=== PATIENT | female | born 1975 | race Caucasian/White ===

== ENCOUNTER → 2022-11-14 | Outpatient (CLI) | payer BC | LOC: M LABSMTC 10:28 | PROVIDERS: ATTEND Anesthesiology | DX: Z01.812 Encounter for preprocedural laboratory examination (principal); Z20.822 Contact with and (suspected) exposure to COVID-19 ==

== ENCOUNTER 2022-11-19 09:49 | Day surgery (SDC) | payer BC ==
[~2022-11-19] VITALS: Ht 157.5 cm; Wt 85.3 kg
[2022-11-19] MEDS ORDERED: LR 1,000 ML IV SCH ×2 (10:00→15:25)
[2022-11-19] MEDS ORDERED: propofoL 200 MG/20 ML VIAL As Ordered ONE (11:09)
[2022-11-19] MEDS ORDERED: fentaNYL 250 MCG/5 ML INJECTION As Ordered ONE (11:09)
[2022-11-19] MEDS ORDERED: MIDAZOLAM INJ 2MG/2ML VIAL As Ordered ONE (11:24)
[2022-11-19] MEDS ORDERED: ROCURONIUM BROMIDE 50MG/5ML VIAL As Ordered ONE (11:24)
[2022-11-19] MEDS ORDERED: LIDOCAINE 2% 100MG/5ML SDV (FOR ANES.) As Ordered ONE (11:24)
[2022-11-19] MEDS ORDERED: LIDOCAINE W/EPINEPHRINE 1% 20ML VIAL As Ordered ONE (11:27)
[2022-11-19] MEDS ORDERED: EPINEPHrine 1MG/ML INJ 30ML MD-VIAL As Ordered ONE ×2 (11:27→13:11)
[2022-11-19] MEDS ORDERED: SODIUM CHLORIDE 0.9% NASAL GEL 15GM (AYR) As Ordered ONE (11:28)
[2022-11-19] MEDS ORDERED: METHYLENE BLUE 0.5% (5MG/ML) 10 ML AMP (PROVAYBLUE) As Ordered ONE ×2 (11:30→13:13)
[2022-11-19] MEDS ORDERED: LACRILUBE (AKWA TEARS) OPHTH OINT 3.5GM As Ordered ONE (12:29)
[2022-11-19] MEDS ORDERED: DESFLURANE 240 ML INHALANT As Ordered ONE (12:47)
[2022-11-19] MEDS ORDERED: METOCLOPRAMIDE INJ 10MG/2ML VIAL As Ordered ONE (13:20)
[2022-11-19] MEDS ORDERED: KETOROLAC 60MG 2ML VIAL As Ordered ONE (13:20)
[2022-11-19] MEDS ORDERED: ONDANSETRON 4MG 2ML VIAL As Ordered ONE ×2 (13:20→15:26)
[2022-11-19] MEDS ORDERED: SUGAMMADEX SODIUM 500 MG/5 ML VIAL (BRIDION) As Ordered ONE (13:23)
[2022-11-19] MEDS ORDERED: fentaNYL 100 MCG/2 ML INJECTION As Ordered ONE (13:26)
[2022-11-19] MEDS ORDERED: ESMOLOL INJ 100MG/10ML VIAL As Ordered ONE (13:41)
[2022-11-19] MEDS ORDERED: hydrALAZINE 20MG/ML 1ML VIAL As Ordered ONE (13:45)
[2022-11-19] MEDS ORDERED: fentaNYL 100 MCG/2 ML INJECTION IV PRN (15:25)
[2022-11-19] MEDS ORDERED: HYDROMORPHONE HCL 0.5 MG/ 0.5 ML SYRINGE IV PRN (15:25)
[2022-11-19] MEDS ORDERED: oxyCODONE 5MG TAB PO PRN (15:25)
[2022-11-19] MEDS ORDERED: ONDANSETRON 4MG 2ML VIAL IV PRN (15:25)
[2022-11-19] MEDS ORDERED: METOCLOPRAMIDE INJ 10MG/2ML VIAL IV PRN (15:25)
[2022-11-19 17:35] VITALS: BP 148/75
== END 2022-11-19 17:40 | disposition home or self-care (01) ==
LOC: M SDC 09:49 → EDUNIT# 11:30 → M SDC 17:40
PROVIDERS: ATTEND Otolaryngology
DX: J33.9 Nasal polyp, unspecified (principal); J32.0 Chronic maxillary sinusitis; J32.1 Chronic frontal sinusitis; J32.2 Chronic ethmoidal sinusitis; J31.0 Chronic rhinitis
CPT/HCPCS: 31255; 31267; 31296; 81025; 88305; C2625; J0171; J0360; J1100; J1885; J2250; J2405; J2765; J3010; Q9968